=== PATIENT | male | born 1955 | race Caucasian/White ===

== ENCOUNTER 2019-09-11 09:11 | Inpatient (IN) ==
[2019-09-11] MEDS ORDERED: GLUCAGON 1 MG VIAL IM PRN (09:38)
[2019-09-11] MEDS ORDERED: DEXTROSE 50% 25 GM/50 ML VIAL IV PRN (09:38)
[2019-09-11 10:44] LABS: Basophils # 0.1 10*3/uL (0.0-0.2); Basophils % 0.7 % (0.0-0.8); Eosinophils # 0.2 10*3/uL (0.0-0.87); Eosinophils % 1.3 % (0.00-10.9); Hematocrit 43.5 VOL% (42.0-52.0); Hemoglobin 14.6 GM/DL (14.0-18.0); Immature Granulocytes % 0.3 %; Immature Granulocytes Absolute 0.04 #; Lymphocytes # 2.6 10*3/uL (1.4-4.0); Lymphocytes % 20.4 % (21.2-54.2); Mean Corpuscular HGB Conc 33.6 GM/DL (32-36); Mean Corpuscular Volume 97.5 FL (87-102); Mean Platelet Volume 13.6 FL (9.6-12.0); Monocytes % 5.5 % (1.7-12.7); Neutrophils % 71.8 % (38.7-73.9); Platelet Count 249 T/CUMM (130-400); Red Blood Count 4.46 MC/CUMM (3.8-5.5); Red Cell Distribution Width 14.6 % (9.3-17.3); White Blood Count 12.5 T/CUMM (4-12)
[2019-09-11 11:22] LABS: ABG HCO3 24.4 MMOL/L (20-26); ABG Oxygen Saturation 94.3 % (95-100); ABG PCO2 37.5 MM HG (35-48); ABG PH 7.418 (7.35-7.45); ABG PO2 65.2 MM HG (80-95); ABG TCO2 20.9 MMOL/L (23-27)
[2019-09-11 11:58] LABS: Albumin 3.3 G/DL (3.4-5.0); Bilirubin,Total 0.6 MG/DL (0.2-1.0); Calcium 8.4 MG/DL (8.5-10.1); Osmolality,Calculated 272.7 MOS/KG (273-304); Total Protein 7.3 G/DL (6.4-8.3)
[2019-09-11] MEDS: SODIUM CHLORIDE 0.9% 1,000 ML IV SCH (12:31)
[2019-09-11] MEDS: CHLORHEXIDINE 4% SOLN 118 ML BOTTLE TOP SCH ×2 (14:29→20:56)
[2019-09-11] MEDS: CHLORHEXIDINE 0.12% ORAL RINSE 60 ML BOTTLE SWISH/SPIT SCH (20:58)
[2019-09-12] MEDS ORDERED: VANCOMYCIN 1,000 MG VIAL ONE (04:21)
[2019-09-12] MEDS ORDERED: VANCOMYCIN 500 MG VIAL ONE (04:21)
[2019-09-12] MEDS ORDERED: PAPAVERINE 60 MG/2 ML VIAL ONE (04:21)
[2019-09-12] MEDS ORDERED: FAMOTIDINE 20 MG TABLET PO ONE (05:00)
[2019-09-12] MEDS ORDERED: DIAZEPAM 5 MG TABLET PO ONE (05:00)
[2019-09-12] MEDS: CHLORHEXIDINE 0.12% ORAL RINSE 60 ML BOTTLE SWISH/SPIT SCH ×3 (06:09→20:28)
[2019-09-12] MEDS: CHLORHEXIDINE 4% SOLN 118 ML BOTTLE TOP SCH ×2 (06:09→12:22)
[2019-09-12] MEDS ORDERED: CEFUROXIME INJ 1,500 MG in SYRINGE 1 EACH IV ONE (07:00)
[2019-09-12 07:40] LABS: ABG Base Excess -0.7 MMOL/L (-2.5-2.5); ABG HCO3 23.4 MMOL/L (20-26); ABG Oxygen Saturation 99.6 % (95-100); ABG PH 7.419 (7.35-7.45); ABG PO2 457.7 MM HG (80-95); ABG TCO2 24.5 MMOL/L (23-27); Glucose Heart Surgery 92 MG/DL (74-106); Hemoglobin Heart Surgery 13.6 G/DL (14.0-18.0); Ionized Calcium Arterial 1.13 MMOL/L (1.21-1.46); PH Patient Temp Arterial 7.419; PO2 Patient Temp Arterial 457.7 MM HG; Patient Temperature 37 CELCIUS; Potassium Heart/CVR 3.9 MMOL/L (3.5-5.1); Sodium Heart/CVR 137 MMOL/L (135-145)
[2019-09-12 08:35] LABS: Hematocrit Heart Surgery 29.4 PERCENT (42-52); Hemoglobin Heart Surgery 9.5 G/DL (14.0-18.0); PCO2 Patient Temp Venous 38.1 MM HG; PH Patient Temp Venous 7.432; PO2 Patient Temp Venous 39.9 MM HG; Potassium Heart/CVR 4.7 MMOL/L (3.5-5.1); VBG Base Excess 1.2 MEQ/L (0-4); VBG HCO3 25.3 MEQ/L (24-28); VBG Oxygen Saturation 82.3 %; VBG PCO2 41.9 MMHG (41-51); VBG PH 7.402; VBG PO2 45.8 MMHG (17-40)
[2019-09-12 09:04] LABS: Hemoglobin Heart Surgery 10.1 G/DL (14.0-18.0); PCO2 Patient Temp Venous 33.3 MM HG; PH Patient Temp Venous 7.479; PO2 Patient Temp Venous 36.6 MM HG; Potassium Heart/CVR 4.7 MMOL/L (3.5-5.1); VBG Base Excess 0.8 MEQ/L (0-4); VBG HCO3 24.6 MEQ/L (24-28); VBG Oxygen Saturation 78.6 %; VBG PCO2 36.3 MMHG (41-51); VBG PH 7.449; VBG PO2 42.1 MMHG (17-40)
[2019-09-12 09:08] LABS: Apearance,Urine CLEAR (Clear); Bilirubin,Urine Negative (Negative); Blood, Urine Negative (Negative); Glucose,Urine (UA) Negative (Negative); Hyaline Casts,Urine 1 /LPF (0-3); Ketones,Urine Negative (Negative); Mucus,Urine Occasional /LPF (Occasional); Nitrite,Urine Negative (Negative); Protein,Urine Negative; RBC,Urine 2 /HPF (0-4); Squamous Epithelial Cell,Urine Occasional /HPF (0-10); Urine Color Straw (Yellow); Urine Specific Gravity 1.006 (1.001-1.035); Urine Urobilinogen < 2.0 EU/DL (0.2-1.0); WBC,Urine <1 /HPF (0-6)
[2019-09-12] MEDS ORDERED: LIDOCAINE 2% 5 ML VIAL ONE (09:49)
[2019-09-12] MEDS ORDERED: MANNITOL 100 GM/500 ML BAG IV ONE (09:49)
[2019-09-12] MEDS ORDERED: MAGNESIUM SULFATE 5 GM/10 ML VIAL IV ONE (09:50)
[2019-09-12] MEDS ORDERED: PROTAMINE SULFATE 250 MG/25 ML VIAL IV ONE (09:50)
[2019-09-12] MEDS ORDERED: DEXTROSE 5% KCL 20 MEQ 20 MEQ/1,000 ML BAG IV ONE (09:50)
[2019-09-12] MEDS ORDERED: ALBUMIN 25% 25 GM/100 ML VIAL IV ONE (09:50)
[2019-09-12] MEDS ORDERED: FUROSEMIDE 20 MG/2 ML VIAL ONE (09:50)
[2019-09-12] MEDS ORDERED: methylPREDNISolone SOD SUC 1,000 MG/8 ML VIAL ONE (09:50)
[2019-09-12] MEDS ORDERED: HEPARIN 10,000 UNIT/10 ML VIAL ONE (09:50)
[2019-09-12] MEDS ORDERED: SODIUM BICARBONATE 50 MEQ/50 ML VIAL IV ONE ×2 (09:50→10:04)
[2019-09-12 09:56] LABS: ABG Base Excess -0.7 MMOL/L (-2.5-2.5); ABG HCO3 23.9 MMOL/L (20-26); ABG PCO2 36.1 MM HG (35-48); ABG PH 7.419 (7.35-7.45); Glucose Heart Surgery 164 MG/DL (74-106); Hematocrit Heart Surgery 33.6 PERCENT (42-52); Hemoglobin Heart Surgery 10.9 G/DL (14.0-18.0); Ionized Calcium Arterial 1.22 MMOL/L (1.21-1.46); PCO2 Patient Temp Arterial 36.1 MMHG; PH Patient Temp Arterial 7.419; Patient Temperature 37 CELCIUS; Potassium Heart/CVR 4.2 MMOL/L (3.5-5.1); Sodium Heart/CVR 133 MMOL/L (135-145)
[2019-09-12] MEDS ORDERED: ALBUMIN 5% 12.5 GM/250 ML VIAL IV ONE (10:04)
[2019-09-12] MEDS ORDERED: EPINEPHrine 1 MG/10 ML SYRINGE ONE (10:04)
[2019-09-12] MEDS ORDERED: NITROPRUSSIDE 50 MG/2 ML VIAL ONE (10:04)
[2019-09-12] MEDS ORDERED: CALCIUM CHLORIDE 1,000 MG/10 ML SYRINGE IV ONE (10:04)
[2019-09-12] MEDS ORDERED: POTASSIUM CHLORIDE RIDER 100 ML IV ONE (10:05)
[2019-09-12] MEDS ORDERED: ATROPINE 1 MG/10 ML SYRINGE ONE (10:05)
[2019-09-12] MEDS ORDERED: LIDOCAINE 100 MG/5 ML SYRINGE ONE (10:05)
[2019-09-12] MEDS ORDERED: CALCIUM CHLORIDE 1,000 MG/10 ML SYRINGE IV PRN (10:23)
[2019-09-12] MEDS ORDERED: MIDAZOLAM 2 MG/2 ML VIAL IV PRN (10:23)
[2019-09-12] MEDS ORDERED: CHLORHEXIDINE 4% SOLN 118 ML BOTTLE TOP PRN (10:23)
[2019-09-12] MEDS ORDERED: ACETAMINOPHEN 650 MG SUPP RECTAL PRN (10:23)
[2019-09-12] MEDS ORDERED: INSULIN REGULAR 100 UNIT/ML IV PRN (10:23)
[2019-09-12] MEDS ORDERED: NITROPRUSSIDE 100 MG in DEXTROSE 5% 250 ML IV PRN (10:23)
[2019-09-12] MEDS ORDERED: ONDANSETRON 4 MG/2 ML VIAL IV PRN (10:23)
[2019-09-12] MEDS ORDERED: VECURONIUM 10 MG VIAL IV PRN ×2 (10:23)
[2019-09-12] MEDS ORDERED: MAGNESIUM SULF RIDER 4 GM in PREMIX 1 EACH IV PRN (10:23)
[2019-09-12] MEDS ORDERED: MORPHINE 10 MG/1 ML VIAL IV PRN (10:23)
[2019-09-12] MEDS ORDERED: MAGNESIUM SULF RIDER 2 GM in PREMIX 1 EACH IV PRN (10:23)
[2019-09-12] MEDS ORDERED: MORPHINE 4 MG/1 ML VIAL IV PRN (10:23)
[2019-09-12] MEDS ORDERED: LACTATED RINGERS 250 ML IV PRN (10:23)
[2019-09-12] MEDS ORDERED: INSULIN REGULAR 100 UNIT/ML IV ONE (10:23)
[2019-09-12] MEDS ORDERED: DEXTROSE 10% 250 ML BAG IV PRN ×2 (10:23)
[2019-09-12] MEDS ORDERED: PHENYLEPHRINE DRIP 40 MG/250 ML PREMIX IV PRN (10:23)
[2019-09-12] MEDS ORDERED: MIDAZOLAM 10 MG/2 ML VIAL IV PRN (10:23)
[2019-09-12] MEDS: SODIUM CHLORIDE 0.45% 1,000 ML IV SCH ×2 (10:25)
[2019-09-12] MEDS ORDERED: INSULIN REGULAR DRIP 100 ML IV SCH (10:30)
[2019-09-12] MEDS ORDERED: ePHEDrine 50 MG/ML AMP ONE (10:37)
[2019-09-12] MEDS ORDERED: SUFentanil 250 MCG/5 ML AMP ONE (10:37)
[2019-09-12] MEDS ORDERED: CALCIUM CHLORIDE 1,000 MG/10 ML VIAL IV ONE (10:37)
[2019-09-12] MEDS ORDERED: PHENYLEPHRINE DRIP 20 MG/250 ML PREMIX IV ONE (10:37)
[2019-09-12] MEDS ORDERED: MIDAZOLAM 10 MG/2 ML VIAL ONE (10:37)
[2019-09-12] MEDS ORDERED: HEPARIN/NACL 0.9% 2 UNITS/ML 500 ML IV ONE (10:37)
[2019-09-12] MEDS ORDERED: SEVOFLURANE 1 UNIT/15 MINUTE INH ONE (10:37)
[2019-09-12] MEDS ORDERED: NITROGLYCERIN DRIP 50 MG/250 ML BOTTLE IV ONE (10:38)
[2019-09-12] MEDS ORDERED: ESMOLOL 100 MG/10 ML VIAL IV ONE (10:38)
[2019-09-12] MEDS ORDERED: VECURONIUM 10 MG VIAL IV ONE (10:38)
[2019-09-12] MEDS ORDERED: AMINOCAPROIC ACID 5,000 MG/20 ML VIAL ONE (10:38)
[2019-09-12] MEDS ORDERED: LACTATED RINGERS 1,000 ML IV ONE (10:38)
[2019-09-12] MEDS ORDERED: SODIUM CHLORIDE 0.9% 200 ML IV ONE (10:38)
[2019-09-12] MEDS ORDERED: SODIUM CHLORIDE 0.9% 1,000 ML IV ONE (10:38)
[2019-09-12 10:52] LABS: ABG HCO3 23.6 MMOL/L (20-26); ABG Oxygen Saturation 98.5 % (95-100); ABG PCO2 41.1 MM HG (35-48); ABG PH 7.377 (7.35-7.45); ABG TCO2 21.4 MMOL/L (23-27); Glucose Heart Surgery 144 MG/DL (74-106); Hematocrit Heart Surgery 37.4 PERCENT (42-52); Hemoglobin Heart Surgery 12.2 G/DL (14.0-18.0); Potassium Heart/CVR 3.8 MMOL/L (3.5-5.1)
[2019-09-12 10:59] LABS: Basophils # 0.1 10*3/uL (0.0-0.2); Basophils % 0.4 % (0.0-0.8); Eosinophils # 0.2 10*3/uL (0.0-0.87); Eosinophils % 1.3 % (0.00-10.9); Hematocrit 36.8 VOL% (42.0-52.0); Immature Granulocytes % 0.7 %; Lymphocytes # 1.4 10*3/uL (1.4-4.0); Lymphocytes % 10.5 % (21.2-54.2); Mean Corpuscular HGB Conc 32.6 GM/DL (32-36); Mean Corpuscular Volume 99.2 FL (87-102); Mean Platelet Volume 11.9 FL (9.6-12.0); Monocytes % 3.6 % (1.7-12.7); Neutrophils % 83.5 % (38.7-73.9); Red Blood Count 3.71 MC/CUMM (3.8-5.5); Red Cell Distribution Width 14.1 % (9.3-17.3); White Blood Count 13.7 T/CUMM (4-12)
[2019-09-12 11:08] LABS: Platelet Count 114 T/CUMM (130-400)
[2019-09-12 11:09] LABS: INR 1.2; Partial Thromboplastin Time 27.5 SECS (20.8-36.0)
[2019-09-12 11:25] LABS: CKMB % 4.7 %
[2019-09-12 11:26] LABS: Albumin 3.1 G/DL (3.4-5.0); Calcium 8.2 MG/DL (8.5-10.1); Osmolality,Calculated 278.5 MOS/KG (273-304); Total Protein 5.8 G/DL (6.4-8.3)
[2019-09-12 11:28] LABS: Troponin I 1.54 NG/ML (0.00-0.045)
[2019-09-12] MEDS: ALBUMIN 5% 12.5 GM in PREMIX 1 EACH IV PRN ×6 (11:39→21:43)
[2019-09-12] MEDS: POTASSIUM CHLORIDE RIDER 20 MEQ in PREMIX 1 EACH IV PRN ×4 (11:39→16:31)
[2019-09-12] MEDS: LACTATED RINGERS 1,000 ML IV PRN ×4 (11:52→16:08)
[2019-09-12] MEDS: POTASSIUM CHLORIDE RIDER 10 MEQ in PREMIX 1 EACH IV PRN ×2 (12:09→18:08)
[2019-09-12] MEDS: SODIUM CHLORIDE 0.9% 1,000 ML IV SCH (12:23)
[2019-09-12 12:33] LABS: ABG Base Excess -3.1 MMOL/L (-2.5-2.5); ABG HCO3 21.3 MMOL/L (20-26); ABG PCO2 35.6 MM HG (35-48); ABG PH 7.394 (7.35-7.45); ABG PO2 97.1 MM HG (80-95); ABG TCO2 22.4 MMOL/L (23-27); Glucose Heart Surgery 125 MG/DL (74-106); Hemoglobin Heart Surgery 11.3 G/DL (14.0-18.0); Potassium Heart/CVR 4.2 MMOL/L (3.5-5.1)
[2019-09-12 14:09] LABS: ABG Base Excess -2.2 MMOL/L (-2.5-2.5); ABG HCO3 22.1 MMOL/L (20-26); ABG Oxygen Saturation 97.2 % (95-100); ABG PCO2 36.1 MM HG (35-48); ABG PH 7.405 (7.35-7.45); ABG TCO2 23.2 MMOL/L (23-27); Glucose Heart Surgery 133 MG/DL (74-106); Hemoglobin Heart Surgery 10.7 G/DL (14.0-18.0)
[2019-09-12] MEDS ORDERED: INSULIN REGULAR 100 UNIT/ML SUBCUT SCH (16:00)
[2019-09-12 16:02] LABS: ABG Base Excess -2.4 MMOL/L (-2.5-2.5); ABG HCO3 22.4 MMOL/L (20-26); ABG Oxygen Saturation 98.1 % (95-100); ABG PCO2 39.8 MM HG (35-48); ABG PH 7.364 (7.35-7.45); ABG TCO2 20.8 MMOL/L (23-27); Glucose Heart Surgery 153 MG/DL (74-106); Hematocrit Heart Surgery 29.7 PERCENT (42-52); Hemoglobin Heart Surgery 9.6 G/DL (14.0-18.0); Potassium Heart/CVR 4.3 MMOL/L (3.5-5.1)
[2019-09-12] MEDS ORDERED: INSULIN REGULAR 100 UNIT/ML ONE (16:29)
[2019-09-12] MEDS: CEFUROXIME INJ 1,500 MG in SYRINGE 1 EACH IV SCH (17:54)
[2019-09-12 18:03] LABS: ABG Base Excess -2.6 MMOL/L (-2.5-2.5); ABG HCO3 22.4 MMOL/L (20-26); ABG Oxygen Saturation 95.9 % (95-100); ABG PCO2 39.8 MM HG (35-48); ABG PH 7.369 (7.35-7.45); ABG PO2 86.7 MM HG (80-95); ABG TCO2 23.7 MMOL/L (23-27); Glucose Heart Surgery 151 MG/DL (74-106); Hemoglobin Heart Surgery 10.5 G/DL (14.0-18.0); Potassium Heart/CVR 4.6 MMOL/L (3.5-5.1)
[2019-09-12] MEDS: INSULIN REGULAR 100 UNIT/ML SUBCUT SCH (20:11)
[2019-09-12 20:23] LABS: ABG Base Excess -3.9 MMOL/L (-2.5-2.5); ABG HCO3 21.4 MMOL/L (20-26); ABG Oxygen Saturation 97.9 % (95-100); ABG PCO2 39.8 MM HG (35-48); ABG PH 7.348 (7.35-7.45); ABG PO2 123.6 MM HG (80-95); ABG TCO2 22.6 MMOL/L (23-27); Glucose Heart Surgery 155 MG/DL (74-106); Hemoglobin Heart Surgery 10.7 G/DL (14.0-18.0); Potassium Heart/CVR 4.7 MMOL/L (3.5-5.1)
[2019-09-12] MEDS: KETOROLAC 30 MG/1 ML VIAL IV SCH (20:28)
[2019-09-12 20:42] LABS: CKMB % 3.1 %
[2019-09-12 20:44] LABS: Troponin I 1.67 NG/ML (0.00-0.045)
[2019-09-12] MEDS ORDERED: FUROSEMIDE 40 MG/4 ML VIAL IV ONE (21:39)
[2019-09-12 21:57] LABS: ABG Base Excess -3.4 MMOL/L (-2.5-2.5); ABG HCO3 21.6 MMOL/L (20-26); ABG Oxygen Saturation 99.1 % (95-100); ABG PCO2 40.9 MM HG (35-48); ABG PH 7.341 (7.35-7.45); ABG TCO2 20.3 MMOL/L (23-27); Glucose Heart Surgery 169 MG/DL (74-106); Hematocrit Heart Surgery 30.2 PERCENT (42-52); Hemoglobin Heart Surgery 9.8 G/DL (14.0-18.0)
[2019-09-12 23:09] LABS: ABG Base Excess -2.3 MMOL/L (-2.5-2.5); ABG HCO3 22.5 MMOL/L (20-26); ABG Oxygen Saturation 98.9 % (95-100); ABG PCO2 43.9 MM HG (35-48); ABG PH 7.337 (7.35-7.45); ABG TCO2 21.5 MMOL/L (23-27); Glucose Heart Surgery 176 MG/DL (74-106); Hematocrit Heart Surgery 31.2 PERCENT (42-52); Hemoglobin Heart Surgery 10.1 G/DL (14.0-18.0); Potassium Heart/CVR 4.8 MMOL/L (3.5-5.1)
[2019-09-12 23:50] LABS: ABG Base Excess -2.4 MMOL/L (-2.5-2.5); ABG HCO3 22.4 MMOL/L (20-26); ABG Oxygen Saturation 99.1 % (95-100); ABG PH 7.329 (7.35-7.45); ABG TCO2 21.6 MMOL/L (23-27); Glucose Heart Surgery 176 MG/DL (74-106); Hematocrit Heart Surgery 31.7 PERCENT (42-52); Hemoglobin Heart Surgery 10.3 G/DL (14.0-18.0); Potassium Heart/CVR 4.6 MMOL/L (3.5-5.1)
[2019-09-13] MEDS: INSULIN REGULAR 100 UNIT/ML SUBCUT SCH ×3 (00:22→08:17)
[2019-09-13 01:00] LABS: ABG Base Excess -1.8 MMOL/L (-2.5-2.5); ABG HCO3 22.9 MMOL/L (20-26); ABG Oxygen Saturation 98.5 % (95-100); ABG PCO2 39.6 MM HG (35-48); ABG PH 7.376 (7.35-7.45); ABG TCO2 21.1 MMOL/L (23-27); Glucose Heart Surgery 179 MG/DL (74-106); Hematocrit Heart Surgery 31.5 PERCENT (42-52); Hemoglobin Heart Surgery 10.2 G/DL (14.0-18.0); Potassium Heart/CVR 4.4 MMOL/L (3.5-5.1)
[2019-09-13 01:55] LABS: ABG Base Excess -2.1 MMOL/L (-2.5-2.5); ABG HCO3 22.7 MMOL/L (20-26); ABG Oxygen Saturation 98.3 % (95-100); ABG PCO2 45.6 MM HG (35-48); ABG TCO2 21.9 MMOL/L (23-27); Glucose Heart Surgery 171 MG/DL (74-106); Hematocrit Heart Surgery 32.4 PERCENT (42-52); Hemoglobin Heart Surgery 10.5 G/DL (14.0-18.0); Potassium Heart/CVR 4.3 MMOL/L (3.5-5.1)
[2019-09-13] MEDS: KETOROLAC 30 MG/1 ML VIAL IV SCH ×4 (02:10→22:08)
[2019-09-13 02:40] LABS: ABG Base Excess -1.3 MMOL/L (-2.5-2.5); ABG HCO3 23.4 MMOL/L (20-26); ABG PCO2 44.3 MM HG (35-48); ABG PH 7.349 (7.35-7.45); ABG TCO2 22.3 MMOL/L (23-27); Glucose Heart Surgery 161 MG/DL (74-106); Hematocrit Heart Surgery 31.3 PERCENT (42-52); Hemoglobin Heart Surgery 10.1 G/DL (14.0-18.0); Potassium Heart/CVR 4.3 MMOL/L (3.5-5.1)
[2019-09-13 03:42] LABS: ABG Base Excess -1.2 MMOL/L (-2.5-2.5); ABG HCO3 23.4 MMOL/L (20-26); ABG Oxygen Saturation 99.2 % (95-100); ABG PH 7.332 (7.35-7.45); ABG TCO2 22.8 MMOL/L (23-27); Glucose Heart Surgery 149 MG/DL (74-106); Hematocrit Heart Surgery 31.4 PERCENT (42-52); Hemoglobin Heart Surgery 10.2 G/DL (14.0-18.0); Potassium Heart/CVR 4.3 MMOL/L (3.5-5.1)
[2019-09-13 03:50] LABS: Basophils % 0.2 % (0.0-0.8); Hematocrit 30.5 VOL% (42.0-52.0); Hemoglobin 9.9 GM/DL (14.0-18.0); Immature Granulocytes % 0.5 %; Immature Granulocytes Absolute 0.06 #; Lymphocytes # 1.1 10*3/uL (1.4-4.0); Lymphocytes % 8.7 % (21.2-54.2); Mean Corpuscular HGB Conc 32.5 GM/DL (32-36); Mean Corpuscular Volume 99.7 FL (87-102); Mean Platelet Volume 12.3 FL (9.6-12.0); Monocytes % 6.2 % (1.7-12.7); Neutrophils % 84.4 % (38.7-73.9); Red Blood Count 3.06 MC/CUMM (3.8-5.5); Red Cell Distribution Width 14.5 % (9.3-17.3); White Blood Count 12.8 T/CUMM (4-12)
[2019-09-13 03:52] LABS: Platelet Count 96 T/CUMM (130-400)
[2019-09-13 04:21] LABS: Albumin 3.7 G/DL (3.4-5.0); Bilirubin,Direct 0.3 MG/DL (0.0-0.20); Bilirubin,Total 1.2 MG/DL (0.2-1.0); Calcium 8.7 MG/DL (8.5-10.1); Osmolality,Calculated 280.5 MOS/KG (273-304); Total Protein 5.9 G/DL (6.4-8.3)
[2019-09-13 04:24] LABS: CKMB % 2.3 %
[2019-09-13 04:34] LABS: Troponin I 2.26 NG/ML (0.00-0.045)
[2019-09-13 04:50] LABS: Hypochromasia 2+; Platelet Estimate Decreased
[2019-09-13 05:56] LABS: ABG Base Excess -0.6 MMOL/L (-2.5-2.5); ABG HCO3 23.9 MMOL/L (20-26); ABG Oxygen Saturation 94.1 % (95-100); ABG PCO2 45.7 MM HG (35-48); ABG PH 7.351 (7.35-7.45); ABG PO2 70.3 MM HG (80-95); ABG TCO2 23.1 MMOL/L (23-27); Glucose Heart Surgery 134 MG/DL (74-106); Hematocrit Heart Surgery 31.5 PERCENT (42-52); Hemoglobin Heart Surgery 10.2 G/DL (14.0-18.0); Potassium Heart/CVR 4.5 MMOL/L (3.5-5.1)
[2019-09-13] MEDS: CEFUROXIME INJ 1,500 MG in SYRINGE 1 EACH IV SCH ×2 (06:05→18:10)
[2019-09-13] MEDS: ASPIRIN EC 81 MG TABLET PO SCH (08:16)
[2019-09-13] MEDS: CHLORHEXIDINE 0.12% ORAL RINSE 60 ML BOTTLE SWISH/SPIT SCH ×2 (08:17→22:08)
[2019-09-13] MEDS: SODIUM CHLORIDE 0.45% 1,000 ML IV SCH ×2 (10:34→10:35)
[2019-09-13] MEDS ORDERED: DEXTROSE 50% 25 GM/50 ML VIAL IV PRN (11:57)
[2019-09-13] MEDS ORDERED: ACETAMINOPHEN 325 MG TABLET PO PRN (11:57)
[2019-09-13] MEDS ORDERED: GLUCAGON 1 MG VIAL IM PRN (11:57)
[2019-09-13] MEDS ORDERED: SODIUM CHLOR 0.45% KCL 20 MEQ 20 MEQ/1,000 ML BAG IV SCH (11:57)
[2019-09-13] MEDS ORDERED: ONDANSETRON 4 MG/2 ML VIAL IV PRN (11:57)
[2019-09-13] MEDS ORDERED: MAGNESIUM HYDROXIDE SUSP 30 ML UDCUP PO PRN (11:57)
[2019-09-13] MEDS ORDERED: MAGNESIUM SULF RIDER 4 GM in PREMIX 1 EACH IV PRN (11:57)
[2019-09-13] MEDS ORDERED: oxyCODONE/ACETAMINOPHEN 5-325 MG TABLET PO PRN (11:57)
[2019-09-13] MEDS ORDERED: MAGNESIUM SULF RIDER 2 GM in PREMIX 1 EACH IV PRN (11:57)
[2019-09-13] MEDS ORDERED: ZALEPLON 5 MG CAPSULE PO PRN (11:57)
[2019-09-13] MEDS ORDERED: ALUMINUM/MAGNES/SIMETH MAX STR 30 ML UDCUP PO PRN (11:57)
[2019-09-13 12:20] LABS: CKMB % 1.6 %
[2019-09-13 12:22] LABS: Troponin I 2.33 NG/ML (0.00-0.045)
[2019-09-13] MEDS: ATORVASTATIN 80 MG TABLET PO SCH (22:07)
[2019-09-14] MEDS: KETOROLAC 30 MG/1 ML VIAL IV SCH ×4 (01:55→21:22)
[2019-09-14] MEDS ORDERED: FUROSEMIDE 40 MG/4 ML VIAL IV ONE (06:00)
[2019-09-14 06:14] LABS: Basophils % 0.1 % (0.0-0.8); Hemoglobin 9.5 GM/DL (14.0-18.0); Immature Granulocytes % 0.4 %; Immature Granulocytes Absolute 0.07 #; Lymphocytes # 1.1 10*3/uL (1.4-4.0); Lymphocytes % 6.7 % (21.2-54.2); Mean Corpuscular HGB Conc 32.8 GM/DL (32-36); Mean Corpuscular Volume 100.7 FL (87-102); Monocytes % 6.5 % (1.7-12.7); Neutrophils % 86.3 % (38.7-73.9); Platelet Count 98 T/CUMM (130-400); Red Blood Count 2.88 MC/CUMM (3.8-5.5); Red Cell Distribution Width 14.7 % (9.3-17.3); White Blood Count 15.6 T/CUMM (4-12)
[2019-09-14 06:41] LABS: Bilirubin,Direct 0.15 MG/DL (0.0-0.20); Bilirubin,Total 0.8 MG/DL (0.2-1.0); Osmolality,Calculated 285.5 MOS/KG (273-304); Total Protein 5.7 G/DL (6.4-8.3)
[2019-09-14 06:48] LABS: Albumin 3.2 G/DL (3.4-5.0); Bilirubin,Direct 0.15 MG/DL (0.0-0.20); Bilirubin,Indirect 0.5 MG/DL (0.0-1.0); Bilirubin,Total 0.6 MG/DL (0.2-1.0); CKMB % 0.9 %; Total Protein 5.5 G/DL (6.4-8.3)
[2019-09-14 06:49] LABS: Troponin I 1.33 NG/ML (0.00-0.045)
[2019-09-14 08:06] LABS: Hypochromasia 1+; Platelet Estimate Decreased
[2019-09-14] MEDS: DOCUSATE SODIUM 100 MG CAPSULE PO SCH (08:54)
[2019-09-14] MEDS: PANTOPRAZOLE 40 MG TABLET PO SCH (08:54)
[2019-09-14] MEDS: FERROUS SULFATE 325 MG TABLET PO SCH (08:54)
[2019-09-14] MEDS: ASPIRIN EC 81 MG TABLET PO SCH (08:54)
[2019-09-14] MEDS: CHLORHEXIDINE 0.12% ORAL RINSE 60 ML BOTTLE SWISH/SPIT SCH ×2 (08:55→21:22)
[2019-09-14] MEDS: ATORVASTATIN 80 MG TABLET PO SCH (21:22)
[2019-09-15] MEDS: KETOROLAC 30 MG/1 ML VIAL IV SCH ×4 (02:30→21:23)
[2019-09-15 06:18] LABS: Basophils % 0.2 % (0.0-0.8); Eosinophils % 0.1 % (0.00-10.9); Hematocrit 29.4 VOL% (42.0-52.0); Hemoglobin 9.6 GM/DL (14.0-18.0); Immature Granulocytes % 0.5 %; Immature Granulocytes Absolute 0.05 #; Lymphocytes # 2.4 10*3/uL (1.4-4.0); Mean Corpuscular HGB Conc 32.7 GM/DL (32-36); Mean Corpuscular Volume 99.7 FL (87-102); Mean Platelet Volume 12.4 FL (9.6-12.0); Monocytes % 8.2 % (1.7-12.7); Red Blood Count 2.95 MC/CUMM (3.8-5.5); Red Cell Distribution Width 14.2 % (9.3-17.3); White Blood Count 10.8 T/CUMM (4-12)
[2019-09-15 06:22] LABS: Platelet Count 88 T/CUMM (130-400)
[2019-09-15 06:41] LABS: Hypochromasia 1+; Platelet Estimate Decreased
[2019-09-15 06:45] LABS: Alanine Aminotransferase 37 U/L (16-61); Albumin 2.9 G/DL (3.4-5.0); Alkaline Phosphatase 72 U/L (45-117); Aspartate Amino Transferase 37 U/L (0-37); Bilirubin,Direct 0.22 MG/DL (0.0-0.20); Bilirubin,Indirect 0.7 MG/DL (0.0-1.0); Bilirubin,Total 0.9 MG/DL (0.2-1.0); Calcium 7.8 MG/DL (8.5-10.1); Osmolality,Calculated 286.3 MOS/KG (273-304); Total Protein 5.3 G/DL (6.4-8.3); Total Protein 5.6 G/DL (6.4-8.3)
[2019-09-15 06:46] LABS: Troponin I 0.843 NG/ML (0.00-0.045)
[2019-09-15] MEDS: POTASSIUM CHLORIDE 20 MEQ TABLET PO PRN ×2 (09:24→10:30)
[2019-09-15] MEDS: ASPIRIN EC 81 MG TABLET PO SCH (09:25)
[2019-09-15] MEDS: PANTOPRAZOLE 40 MG TABLET PO SCH (09:25)
[2019-09-15] MEDS: DOCUSATE SODIUM 100 MG CAPSULE PO SCH (09:26)
[2019-09-15] MEDS: FERROUS SULFATE 325 MG TABLET PO SCH (09:26)
[2019-09-15] MEDS: CHLORHEXIDINE 0.12% ORAL RINSE 60 ML BOTTLE SWISH/SPIT SCH ×2 (09:34→21:23)
[2019-09-15] MEDS ORDERED: ALBUTEROL/IPRATROPIUM 3 ML NEB RESP TX ONE (10:51)
[2019-09-15] MEDS: ALBUTEROL/IPRATROPIUM 3 ML NEB RESP TX SCH ×2 (13:45→19:20)
[2019-09-15] MEDS: ATORVASTATIN 80 MG TABLET PO SCH (21:23)
[2019-09-16] MEDS: ALBUTEROL/IPRATROPIUM 3 ML NEB RESP TX SCH ×2 (00:04→07:12)
[2019-09-16] MEDS: KETOROLAC 30 MG/1 ML VIAL IV SCH ×2 (03:49→08:36)
[2019-09-16 05:15] LABS: Basophils % 0.2 % (0.0-0.8); Eosinophils # 0.1 10*3/uL (0.0-0.87); Eosinophils % 0.5 % (0.00-10.9); Hematocrit 31.4 VOL% (42.0-52.0); Hemoglobin 10.1 GM/DL (14.0-18.0); Immature Granulocytes % 0.7 %; Immature Granulocytes Absolute 0.08 #; Lymphocytes # 2.2 10*3/uL (1.4-4.0); Lymphocytes % 20.8 % (21.2-54.2); Mean Corpuscular HGB Conc 32.2 GM/DL (32-36); Mean Corpuscular Volume 99.7 FL (87-102); Mean Platelet Volume 13.1 FL (9.6-12.0); Monocytes % 8.7 % (1.7-12.7); Neutrophils % 69.1 % (38.7-73.9); Red Blood Count 3.15 MC/CUMM (3.8-5.5); White Blood Count 10.7 T/CUMM (4-12)
[2019-09-16 05:21] LABS: Platelet Count 98 T/CUMM (130-400)
[2019-09-16 05:33] LABS: Osmolality,Calculated 280.5 MOS/KG (273-304)
[2019-09-16 05:45] LABS: Hypochromasia 1+; Ovalocytes Slight; Platelet Estimate Decreased
[2019-09-16 08:28] VITALS: BP 133/70
[2019-09-16] MEDS: FERROUS SULFATE 325 MG TABLET PO SCH (08:36)
[2019-09-16] MEDS: ASPIRIN EC 81 MG TABLET PO SCH (08:36)
[2019-09-16] MEDS: DOCUSATE SODIUM 100 MG CAPSULE PO SCH (08:36)
[2019-09-16] MEDS: PANTOPRAZOLE 40 MG TABLET PO SCH (08:36)
[2019-09-16] MEDS: CHLORHEXIDINE 0.12% ORAL RINSE 60 ML BOTTLE SWISH/SPIT SCH (08:37)
[2019-09-16] MEDS ORDERED: METOPROLOL SUCCINATE XL 25 MG TABLET PO SCH (09:00)
== END 2019-09-16 12:05 | disposition home health service (06) | DRG 236 ==
LOC: N.TELES 09:11 → N.CVR 09-12 07:27 → N.TELES 09-12 07:40 → N.CVR 09-12 10:11 → N.TELES 09-13 11:16